=== PATIENT | male | born 1945 | race Caucasian/White ===

== ENCOUNTER → 2016-12-03 | Outpatient (CLI) | payer MEDICARE, BC, OTHER ==
[~2016-12-03] VITALS: Ht 179.1 cm; Wt 107.0 kg
[~2016-12-03] MED LIST: ALTA1CAP3 PO; ASPI1TAB PO; ATOR80TA59 PO; DOXY-278 PO; GABA600T PO; GLIP1TAB49 PO; INSUDET SC; JANU100T PO; LIDOCAINE 2% INJ 100 MG/5 ML SDV (FOR ANES.) As Ordered ONE; METF500T13 PO; NORT25CA2 PO; NS 1,000 ML IV SCH; PANT40TA2 PO; PROPOFOL 500 MG/50 ML VIAL As Ordered ONE; XARE10TA PO
--- NOTE | 2016-12-03 08:33 | ROOR ---
Patient Name: Phil Strong Procedure Date: 12/03/2016 8:06 AM Date of : 1945 Age: 71 Room: [facility] Gender: Male Note Status: Finalized Procedure: Total Colonoscopy to Cecum + Cold Snare Polypectomy + Hemoclip Indications: Screening for colorectal malignant neoplasm Providers: Eliel Art MD Referring MD: Gonzalo Marie MD Requesting Provider: Medicines: Monitored Anesthesia Care Complications: No immediate complications. Procedure: Pre-Anesthesia Assessment: - The heart rate, respiratory rate, oxygen saturations, blood pressure, adequacy of pulmonary ventilation, and response to care were monitored throughout the procedure. The Colonoscope was introduced through the anus and advanced to the cecum, identified by appendiceal orifice and ileocecal valve. The colonoscopy was performed without difficulty. The patient tolerated the procedure well. The quality of the bowel preparation was excellent. Findings: The perianal and digital rectal examinations were normal. Non-bleeding internal hemorrhoids were found during retroflexion. The hemorrhoids were small and Grade I (internal hemorrhoids that do not prolapse). Scattered small-mouthed diverticula were found in the recto-sigmoid colon, sigmoid colon and descending colon. A small polyp was found at 30 cm proximal to the anus. The polyp was sessile. The polyp was removed with a cold snare. Resection and retrieval were complete. To prevent bleeding after the polypectomy, one hemostatic clip was successfully placed (MR conditional). There was no bleeding at the end of the procedure. The exam was otherwise without abnormality on direct and retroflexion views. Impression: - Non-bleeding internal hemorrhoids. - Diverticulosis in the recto-sigmoid colon, in the sigmoid colon and in the descending colon. - One small polyp at 30 cm proximal to the anus, removed with a cold snare. Resected and retrieved. Clip (MR conditional) was placed. - The examination was otherwise normal on direct and retroflexion views. - The exam was otherwise normal to the cecum. Recommendation: - Patient has a contact number available for emergencies. The signs and symptoms of potential delayed complications were discussed with the patient. Return to normal activities tomorrow. Written discharge instructions were provided to the patient. - High fiber diet. - Discharge patient to home. - Continue present medications. - Await pathology results. - Repeat colonoscopy for surveillance based on pathology results. - Resume Xarelto (rivaroxaban) at prior dose today. - Telephone GI clinic for pathology results in 1 week. - Check Portal Online for Path Results.([email or web address] - The findings and recommendations were discussed with the patient's family. Eliel Art MD Eliel Art MD 12/03/2016 8:32:55 AM This report has been signed electronically. Number of Addenda: 0 Note Initiated On: 12/03/2016 8:06 AM Estimated Blood Loss: Estimated blood loss: none.
[2016-12-03 08:54] VITALS: BP 147/84
== END | disposition home or self-care (01) ==
LOC: M OPP 07:12
PROVIDERS: ATTEND Internal Medicine Gastroenterology
DX: Z12.11 Encounter for screening for malignant neoplasm of colon (principal); K64.0 First degree hemorrhoids; K57.30 Diverticulosis of large intestine without perforation or abscess without bleeding; D12.5 Benign neoplasm of sigmoid colon; Z95.5 Presence of coronary angioplasty implant and graft; I25.9 Chronic ischemic heart disease, unspecified; I10 Essential (primary) hypertension; E78.00 Pure hypercholesterolemia, unspecified; I73.9 Peripheral vascular disease, unspecified; E10.9 Type 1 diabetes mellitus without complications; Z86.718 Personal history of other venous thrombosis and embolism; G47.30 Sleep apnea, unspecified; Z79.899 Other long term (current) drug therapy; Z79.82 Long term (current) use of aspirin; Z79.2 Long term (current) use of antibiotics; Z79.4 Long term (current) use of insulin; Z79.01 Long term (current) use of anticoagulants

== ENCOUNTER → 2016-12-18 | Outpatient (REF) | payer MEDICARE, OTHER ==
[~2016-12-18] MED LIST changes: -LIDOCAINE 2% INJ 100 MG/5 ML SDV (FOR ANES.) As Ordered ONE; -NS 1,000 ML IV SCH; -PROPOFOL 500 MG/50 ML VIAL As Ordered ONE
== END ==
LOC: M LAB REF 15:42
PROVIDERS: ATTEND Nurse Practitioner Family
DX: L08.9 Local infection of the skin and subcutaneous tissue, unspecified (principal)

== ENCOUNTER → 2018-02-08 | Outpatient (REF) | payer MEDICARE, OTHER | LOC: M LAB REF 15:31 | DX: L08.9 Local infection of the skin and subcutaneous tissue, unspecified (principal) | CPT/HCPCS: 87077; 87186 ==

== ENCOUNTER → 2018-06-10 | Outpatient (REF) | payer MEDICARE, OTHER ==
[~2018-06-10] MED LIST changes: -DOXY-278 PO; +DOXY-350 PO; -GABA600T PO; +GABA600T4 PO; -GLIP1TAB49 PO; +GLIP5TAB20 PO; -PANT40TA2 PO; +PANT40TA3 PO
== END ==
LOC: M LAB REF 15:45
PROVIDERS: ATTEND Nurse Practitioner Family
DX: L08.9 Local infection of the skin and subcutaneous tissue, unspecified (principal)

== ENCOUNTER → 2018-09-23 | Outpatient (REF) | payer MEDICARE, OTHER ==
[~2018-09-23] MED LIST changes: -ASPI1TAB PO; +ASPI81TA26 PO
[2018-09-23 13:28] LABS: HEMATOCRIT 43.1 % (42.0-52.0); HEMOGLOBIN 14.1 g/dl (13.5-17.5); MEAN CORPUSCULAR HEMOGLOBIN 31.5 pg (27.0-33.0); MEAN CORPUSCULAR HGB CONC 32.7 g/dl (32.0-36.5); MEAN CORPUSCULAR VOLUME 96.2 fl (80.0-96.0); PLATELET COUNT, AUTOMATED 137 10^3/uL (150-450); RED BLOOD COUNT 4.48 10^6/uL (4.30-6.10); WHITE BLOOD COUNT 8.1 10^3/uL (4.0-10.0)
[2018-09-23 13:58] LABS: ALBUMIN 4.1 GM/DL (3.2-5.2); ALT/SGPT 61 U/L (12-78); BILIRUBIN,DIRECT < 0.1 MG/DL (0.0-0.2); BILIRUBIN,TOTAL 0.3 MG/DL (0.2-1.0); CHOLESTEROL LEVEL 173 MG/DL (<200); CHOLESTEROL RISK RATIO 4.435 (<5); HDL CHOLESTEROL 39 MG/DL (>40); LDL CHOLESTEROL 67 MG/DL (<100); NON-HDL-C 134 MG/DL; TOTAL PROTEIN 6.9 GM/DL (6.4-8.2); TRIGLYCERIDES LEVEL 334 MG/DL (<150)
== END ==
LOC: M SFHCPLAZ 12:12
PROVIDERS: ATTEND Dermatology
DX: Z79.899 Other long term (current) drug therapy (principal)

== ENCOUNTER → 2018-12-15 | Outpatient (REF) | payer MEDICARE, OTHER ==
[2018-12-15 14:26] LABS: APPEARANCE, URINE CLEAR (CLEAR); BACTERIA, URINE AUTO NEGATIVE (NEGATIVE); BILIRUBIN, URINE AUTO NEGATIVE (NEGATIVE); BLOOD, URINE BLOOD 1+ (NEGATIVE); COLOR, URINE YELLOW (YELLOW); GLUCOSE, URINE (UA) AUTO 1+ mg/dL (NEGATIVE); KETONE, URINE AUTO NEGATIVE (NEGATIVE); LEUKOCYTE ESTERASE, URINE AUTO NEGATIVE (NEGATIVE); NITRITE, URINE AUTO NEGATIVE (NEGATIVE); PROTEIN, URINE AUTO NEGATIVE (NEGATIVE); RBC, URINE AUTO 4 /HPF (0-3); SPECIFIC GRAVITY URINE AUTO 1.028 (1.002-1.035); SQUAMOUS EPITHELIAL CELL UR AU 1 /HPF (0-6); UROBILINOGEN, URINE AUTO 0.2 mg/dL (0.0-2.0); WBC, URINE AUTO 3 /HPF (0-3)
== END ==
LOC: M LAB REF 13:06
PROVIDERS: ATTEND Physician Assistant
DX: N39.0 Urinary tract infection, site not specified (principal)

== ENCOUNTER 2019-01-11 20:19 | Emergency (ER) | payer MEDICARE, BC, OTHER ==
[~2019-01-11] VITALS: Ht 182.9 cm; Wt 99.1 kg
[2019-01-11] MEDS ORDERED: TRUL0.5I (20:30)
[2019-01-11] MEDS ORDERED: CEPH500C (20:30)
[2019-01-11] MEDS ORDERED: diphenhydrAMINE INJ 50MG/ML VIAL (J1200) IV STA (21:43)
[2019-01-11 21:48] LABS: HEMATOCRIT 41.7 % (42.0-52.0); HEMOGLOBIN 14.2 g/dl (13.5-17.5); MEAN CORPUSCULAR HEMOGLOBIN 32.1 pg (27.0-33.0); MEAN CORPUSCULAR HGB CONC 34.1 g/dl (32.0-36.5); MEAN CORPUSCULAR VOLUME 94.1 fl (80.0-96.0); PLATELET COUNT, AUTOMATED 152 10^3/uL (150-450); RED BLOOD COUNT 4.43 10^6/uL (4.30-6.10); WHITE BLOOD COUNT 7.6 10^3/uL (4.0-10.0)
[2019-01-11 22:10] LABS: BLOOD UREA NITROGEN 20 MG/DL (7-18); CALCIUM LEVEL 9.1 MG/DL (8.8-10.2); CARBON DIOXIDE LEVEL 26 MEQ/L (21-32); CHLORIDE LEVEL 108 MEQ/L (98-107); CREATININE FOR GFR 1.21 MG/DL (0.70-1.30); GLOMERULAR FILTRATION RATE > 60.0 (>42); GLUCOSE, FASTING 128 MG/DL (70-100); POTASSIUM SERUM 3.9 MEQ/L (3.5-5.1); SODIUM LEVEL 141 MEQ/L (136-145)
[2019-01-11] MEDS ORDERED: BENA25CA4 PO (22:43)
[2019-01-11 22:56] VITALS: BP 132/78
== END 2019-01-11 22:58 | disposition home or self-care (01) ==
LOC: M ED 20:19
DX: T78.40XA Allergy, unspecified, initial encounter (principal); R21 Rash and other nonspecific skin eruption; L29.9 Pruritus, unspecified; X58.XXXA Exposure to other specified factors, initial encounter; Y92.098 Other place in other non-institutional residence as the place of occurrence of the external cause; E11.40 Type 2 diabetes mellitus with diabetic neuropathy, unspecified; I25.2 Old myocardial infarction; Z86.718 Personal history of other venous thrombosis and embolism; Z87.442 Personal history of urinary calculi; Z79.899 Other long term (current) drug therapy; Z79.82 Long term (current) use of aspirin; Z79.4 Long term (current) use of insulin; Z79.01 Long term (current) use of anticoagulants; Z79.2 Long term (current) use of antibiotics
CPT/HCPCS: 80048; 85027; 96374; 99284; J1200

== ENCOUNTER → 2020-05-07 | Outpatient (REF) | payer MEDICARE, OTHER ==
[~2020-05-07] MED LIST changes: +BENA25CA4 PO; +CEPH500C; +PANT40TA29 PO; -PANT40TA3 PO; +TRUL0.5I
== END ==
LOC: M LAB REF 12:16
PROVIDERS: ATTEND Family Medicine
DX: R74.01 Elevation of levels of liver transaminase levels (principal)

== ENCOUNTER 2021-03-14 17:55 | Emergency (ER) | payer MEDICARE, OTHER ==
[~2021-03-14] VITALS: Ht 177.8 cm; Wt 103.3 kg
[2021-03-14] MEDS ORDERED: GI COCKTAIL 50ML BTL(HYOSCYAMINE/MAALOX/LIDOCAINE VISCOUS)(1:3:1) PO ONE (18:50)
[2021-03-14 18:51] LABS: BASO % 0.4 % (0.0-1.0); EOS # 0.3 10^3/uL (0.0-0.5); HEMOGLOBIN 14.8 g/dl (13.5-17.5); LYMPH # 2.4 10^3/uL (1.5-5.0); LYMPH % 26.7 % (24.0-44.0); MEAN CORPUSCULAR HEMOGLOBIN 30.8 pg (27.0-33.0); MEAN CORPUSCULAR HGB CONC 32.9 g/dl (32.0-36.5); MEAN CORPUSCULAR VOLUME 93.8 fl (80.0-96.0); MONO # 0.7 10^3/uL (0.0-0.8); MONO % 8.3 % (2.0-8.0); NEUTROPHILS # 5.5 10^3/uL (1.5-8.5); NEUTROPHILS % 61.2 % (36.0-66.0); PLATELET COUNT, AUTOMATED 134 10^3/uL (150-450); WHITE BLOOD COUNT 8.9 10^3/uL (4.0-10.0)
--- NOTE | 2021-03-14 18:59 | REP ---
INDICATION: CHEST PAIN. COMPARISON: 07/24/2016 the latest prior TECHNIQUE: Portable FINDINGS: The technique utilized in obtaining the radiograph has magnified the cardiac silhouette and accentuated the interstitial markings. The cardiomediastinal silhouette lung marinelli are unchanged. No acute patchy parenchymal opacities or pleural effusions have developed. The pleural angles remain sharp. The osseous structures are stable and intact. IMPRESSION: There is no acute cardiopulmonary disease. <Electronically signed by Dennis Hensley > 03/14/21 [id number]
[2021-03-14 19:14] LABS: BLOOD UREA NITROGEN 18 MG/DL (7-18); CALCIUM LEVEL 10.2 MG/DL (8.8-10.2); CARBON DIOXIDE LEVEL 31 MEQ/L (21-32); CHLORIDE LEVEL 106 MEQ/L (98-107); CK-MB VALUE MASS 3.5 NG/ML (<3.6); CPK CREATINE PHOSPHOKINASE 127 U/L (39-308); CREATININE FOR GFR 1.41 MG/DL (0.70-1.30); GLOMERULAR FILTRATION RATE 52.3 (>42); GLUCOSE, FASTING 78 MG/DL (70-100); MB/CK RELATIVE INDEX 2.76 (< OR =4); POTASSIUM SERUM 4.2 MEQ/L (3.5-5.1); SODIUM LEVEL 139 MEQ/L (136-145); TROPONIN I < 0.02 NG/ML (< 0.10)
[2021-03-14] MEDS ORDERED: PEPC1TAB5 PO (19:55)
[2021-03-14 20:00] VITALS: BP 139/83
--- NOTE | 2021-03-14 20:26 | ECGEPIP ---
[facility] - ED Test Date: 2021-03-14 Pat Name: HERBERT CHAPMAN Department: Room: - Gender: Male Header Up: ANAITERESAKURT : 1945 Requested By: Freddie Tran Order Number: [id number] Reading MD: Rosa Elena Rivers Measurements Intervals [place] Rate: 83 P: 59 CT: 180 QRS: -18 QRSD: 112 T: 32 QT: 372 QTc: 437 Interpretive Statements Normal sinus rhythm Incomplete right bundle branch block No prior Electronically Signed on 03-14-2021 20:26:15 EDT by Rosa Elena Rivers
== END 2021-03-14 20:21 | disposition home or self-care (01) ==
LOC: M ED 17:55
DX: K21.9 Gastro-esophageal reflux disease without esophagitis (principal); I45.19 Other right bundle-branch block; I10 Essential (primary) hypertension; I25.2 Old myocardial infarction; Z86.718 Personal history of other venous thrombosis and embolism; Z87.442 Personal history of urinary calculi; Z95.5 Presence of coronary angioplasty implant and graft; Z79.899 Other long term (current) drug therapy; Z79.82 Long term (current) use of aspirin; Z79.4 Long term (current) use of insulin; Z79.01 Long term (current) use of anticoagulants

== ENCOUNTER → 2021-03-30 | Outpatient (REF) | payer MEDICARE, OTHER ==
[~2021-03-30] MED LIST changes: +PEPC1TAB5 PO
== END ==
LOC: M LAB REF 17:51
PROVIDERS: ATTEND Physician Assistant Medical
DX: R05.9 Cough, unspecified (principal)

== ENCOUNTER → 2021-05-09 | Outpatient (REF) | payer MEDICARE, OTHER ==
[2021-05-10 12:54] LABS: ALT/SGPT 76 U/L (12-78)
== END ==
LOC: M LAB REF 07:58
PROVIDERS: ATTEND Family Medicine
DX: R94.5 Abnormal results of liver function studies (principal)

== ENCOUNTER → 2021-09-04 | Outpatient (CLI) | payer MEDICARE, BC, OTHER ==
[~2021-09-04] MED LIST changes: -CEPH500C; +CEPH500C PO; +TRUL0.5I SC
== END ==
LOC: M LABSMTC 09:40
PROVIDERS: ATTEND Anesthesiology
DX: Z01.818 Encounter for other preprocedural examination (principal); Z11.52 Encounter for screening for COVID-19

== ENCOUNTER 2021-09-09 07:28 | Day surgery (SDC) | payer MEDICARE, BC, OTHER ==
[~2021-09-09] VITALS: Ht 177.8 cm; Wt 100.5 kg
[~2021-09-09 07:28] MED LIST changes: +NS 1,000 ML IV ONE
[2021-09-09] MEDS ORDERED: fentaNYL 100 MCG/2 ML INJECTION As Ordered ONE (08:55)
[2021-09-09] MEDS ORDERED: LIDOCAINE 2% INJ 100 MG/5 ML SYRINGE As Ordered ONE (09:15)
[2021-09-09] MEDS ORDERED: propofoL 200 MG/20 ML VIAL As Ordered ONE (09:15)
[2021-09-09 09:48] VITALS: BP 128/74
== END 2021-09-09 09:51 | disposition home or self-care (01) ==
LOC: M OPP 07:28
PROVIDERS: ATTEND Internal Medicine Gastroenterology
DX: Z12.11 Encounter for screening for malignant neoplasm of colon (principal); Z86.010 Personal history of colon polyps; K57.30 Diverticulosis of large intestine without perforation or abscess without bleeding; K64.0 First degree hemorrhoids; K44.9 Diaphragmatic hernia without obstruction or gangrene; K31.89 Other diseases of stomach and duodenum; R12 Heartburn; Z79.02 Long term (current) use of antithrombotics/antiplatelets; Z79.82 Long term (current) use of aspirin; Z79.84 Long term (current) use of oral hypoglycemic drugs; Z79.899 Other long term (current) drug therapy; G47.33 Obstructive sleep apnea (adult) (pediatric); Z99.89 Dependence on other enabling machines and devices
CPT/HCPCS: 43239; 45380; 88305; J3010

== ENCOUNTER → 2021-09-26 | Outpatient (REF) | payer MEDICARE, BC, OTHER ==
[~2021-09-26] MED LIST changes: -NS 1,000 ML IV ONE
== END ==
LOC: M LAB REF 12:06
PROVIDERS: ATTEND Family Medicine
DX: N40.1 Benign prostatic hyperplasia with lower urinary tract symptoms (principal)

== ENCOUNTER → 2022-05-06 | Outpatient (REF) | payer MEDICARE, OTHER ==
[~2022-05-06] MED LIST changes: -DOXY-350 PO; +DOXY-444 PO
== END ==
LOC: M LAB REF 11:59
PROVIDERS: ATTEND Family Medicine
DX: E53.8 Deficiency of other specified B group vitamins (principal)

== ENCOUNTER 2022-05-15 09:27 | Emergency (ER) | payer MEDICARE, OTHER ==
[~2022-05-15] VITALS: Ht 180.3 cm; Wt 101.5 kg
[2022-05-15 09:27] VITALS: BP 151/74
== END 2022-05-15 10:30 | disposition home or self-care (01) ==
LOC: M ED 09:27
DX: S09.90XA Unspecified injury of head, initial encounter (principal); W00.0XXA Fall on same level due to ice and snow, initial encounter; Y92.009 Unspecified place in unspecified non-institutional (private) residence as the place of occurrence of the external cause; I25.10 Atherosclerotic heart disease of native coronary artery without angina pectoris; I10 Essential (primary) hypertension; N20.0 Calculus of kidney; Z79.01 Long term (current) use of anticoagulants; Z79.4 Long term (current) use of insulin; Z79.82 Long term (current) use of aspirin; Z79.899 Other long term (current) drug therapy

== ENCOUNTER 2022-05-19 08:49 | Emergency (ER) | payer MEDICARE, OTHER ==
[~2022-05-19] VITALS: Ht 180.3 cm; Wt 101.7 kg
[2022-05-19] MEDS ORDERED: ACETAMINOPHEN TAB 650MG DOSE (2X325MG) PO ONE (09:55)
[2022-05-19 10:21] VITALS: BP 145/76
== END 2022-05-19 10:34 | disposition home or self-care (01) ==
LOC: M ED 08:49
DX: S00.03XA Contusion of scalp, initial encounter (principal); W19.XXXA Unspecified fall, initial encounter; Y92.099 Unspecified place in other non-institutional residence as the place of occurrence of the external cause; E11.9 Type 2 diabetes mellitus without complications; I10 Essential (primary) hypertension; Z79.899 Other long term (current) drug therapy; Z79.4 Long term (current) use of insulin; Z79.82 Long term (current) use of aspirin; Z79.84 Long term (current) use of oral hypoglycemic drugs

== ENCOUNTER → 2022-05-21 | Outpatient (CLI) | payer MEDICARE, OTHER | LOC: M WUC 14:37 | PROVIDERS: ATTEND Physician Assistant Medical | DX: M25.521 Pain in right elbow (principal) ==

== ENCOUNTER → 2022-10-28 | Outpatient (CLI) | payer MEDICARE, BC, OTHER | LOC: M RAD 11:32 | PROVIDERS: ATTEND Podiatrist Foot & Ankle Surgery | DX: I73.89 Other specified peripheral vascular diseases (principal) ==

== ENCOUNTER → 2022-12-17 | Outpatient (REF) | payer MEDICARE, BC, OTHER ==
[2022-12-17 10:56] LABS: INR 1.58; PROTHROMBIN TIME 19.2 SECONDS (12.5-14.5)
[2022-12-17 10:57] LABS: PARTIAL THROMBOPLASTIN TIME 33.4 SECONDS (24.8-34.2)
[2022-12-17 11:12] LABS: IRON (FE) 73 UG/DL (65-175)
[2022-12-17 11:13] LABS: ALBUMIN 3.9 G/DL (3.2-5.2); ALKALINE PHOSPHATASE 67 U/L (46-116); ALT/SGPT 45 U/L (7.0-40); AST/SGOT 25 U/L (<34); BILIRUBIN,DIRECT 0.2 MG/DL (<0.4); BILIRUBIN,TOTAL 0.4 MG/DL (0.3-1.2); PERCENT SATURATION 20.7 % (19.7-50.0); THYROID STIMULATING HORMONE 1.815 uIU/ML (0.55-4.78); TOTAL IRON BINDING CAPACITY 353 UG/DL (250-425)
[2022-12-17 11:14] LABS: HEPATITIS B SURFACE ANTIBODY NEGATIVE (POSITIVE)
[2022-12-17 11:15] LABS: FERRITIN 46.3 NG/ML (10.5-307.3)
[2022-12-17 11:47] LABS: HEPATITIS C VIRUS ABY INDEX 0.12 INDEX (<0.8)
== END ==
LOC: M LABWUC 09:29
PROVIDERS: ATTEND Physician Assistant
DX: R94.5 Abnormal results of liver function studies (principal)

== ENCOUNTER 2023-03-31 08:32 | Emergency (ER) | payer MEDICARE, BC, OTHER ==
[~2023-03-31] VITALS: Ht 180.3 cm; Wt 101.8 kg
[2023-03-31] MEDS ORDERED: AMIT75TA (08:45)
[2023-03-31] MEDS ORDERED: PREG100C2 (08:45)
[2023-03-31] MEDS ORDERED: ACETAMINOPHEN 500 MG TAB PO ONE (11:15)
[2023-03-31] MEDS ORDERED: ONDANSETRON 4MG ORAL DISINTEGRATING TAB PO ONE (11:15)
[2023-03-31 12:03] LABS: BASO % 0.4 % (0.0-1.0); EOS # 0.2 10^3/uL (0.0-0.5); EOS % 3.1 % (0.0-3.0); HEMATOCRIT 44.1 % (42.0-52.0); HEMOGLOBIN 14.5 g/dl (13.5-17.5); LYMPH # 1.6 10^3/uL (1.5-5.0); LYMPH % 23.8 % (24.0-44.0); MEAN CORPUSCULAR HEMOGLOBIN 31.5 pg (27.0-33.0); MEAN CORPUSCULAR HGB CONC 32.9 g/dl (32.0-36.5); MEAN CORPUSCULAR VOLUME 95.9 fl (80.0-96.0); MONO # 0.6 10^3/uL (0.0-0.8); MONO % 9.5 % (2.0-8.0); NEUTROPHILS # 4.2 10^3/uL (1.5-8.5); NEUTROPHILS % 62.9 % (36.0-66.0); PLATELET COUNT, AUTOMATED 105 10^3/uL (150-450); WHITE BLOOD COUNT 6.7 10^3/uL (4.0-10.0)
[2023-03-31 12:29] LABS: C REACTIVE PROTEIN QUANTITATIV < 0.40 MG/DL (<1.0)
[2023-03-31 12:31] LABS: BLOOD UREA NITROGEN 20 MG/DL (9-23); CALCIUM LEVEL 9.1 MG/DL (8.3-10.6); CARBON DIOXIDE LEVEL 27 MMOL/L (20-31); CHLORIDE LEVEL 105 MMOL/L (98-107); CREATININE FOR GFR 1.22 MG/DL (0.70-1.30); GLOMERULAR FILTRATION RATE > 60.0 (>42); GLUCOSE, FASTING 145 MG/DL (74-106); POTASSIUM SERUM 4.6 MMOL/L (3.5-5.1); SODIUM LEVEL 139 MMOL/L (136-145)
[2023-03-31 13:03] LABS: ERYTHROCYTE SEDIMENTATION RATE 26 mm/hr (0-20)
[2023-03-31 13:08] VITALS: BP 157/75; TEMP 98; O2SAT 100
== END 2023-03-31 14:09 | disposition home or self-care (01) ==
LOC: M ED 08:32
DX: K40.20 Bilateral inguinal hernia, without obstruction or gangrene, not specified as recurrent (principal); I10 Essential (primary) hypertension; Z87.442 Personal history of urinary calculi; Z86.718 Personal history of other venous thrombosis and embolism; Z79.01 Long term (current) use of anticoagulants; Z79.82 Long term (current) use of aspirin; Z79.4 Long term (current) use of insulin; Z79.84 Long term (current) use of oral hypoglycemic drugs; Z79.899 Other long term (current) drug therapy

== ENCOUNTER → 2023-06-17 | Outpatient (CLI) | payer MEDICARE, BC, OTHER ==
[~2023-06-17] MED LIST changes: +AMIT75TA; +PREG100C2
== END ==
LOC: M RAD 10:01
PROVIDERS: ATTEND Family Medicine
DX: K76.0 Fatty (change of) liver, not elsewhere classified (principal); N28.1 Cyst of kidney, acquired; N20.0 Calculus of kidney

== ENCOUNTER → 2023-07-13 | Outpatient (REF) | payer MEDICARE, BC, OTHER ==
[2023-07-13 12:41] LABS: APPEARANCE, URINE CLEAR (CLEAR); BACTERIA, URINE AUTO NEGATIVE (NEGATIVE); BILIRUBIN, URINE AUTO NEGATIVE (NEGATIVE); BLOOD, URINE BLOOD 1+ (NEGATIVE); COLOR, URINE YELLOW (YELLOW); GLUCOSE, URINE (UA) AUTO 3+ mg/dL (NEGATIVE); KETONE, URINE AUTO NEGATIVE (NEGATIVE); LEUKOCYTE ESTERASE, URINE AUTO NEGATIVE (NEGATIVE); MUCUS, URINE SMALL (NEGATIVE); NITRITE, URINE AUTO NEGATIVE (NEGATIVE); PROTEIN, URINE AUTO 1+ mg/dL (NEGATIVE); RBC, URINE AUTO 4 /HPF (0-3); SQUAMOUS EPITHELIAL CELL UR AU 0 /HPF (0-6); UROBILINOGEN, URINE AUTO 0.2 mg/dL (0.0-2.0); WBC, URINE AUTO 3 /HPF (0-3)
== END ==
LOC: M LAB REF 12:04
PROVIDERS: ATTEND Physician Assistant Medical
DX: N39.0 Urinary tract infection, site not specified (principal)

== ENCOUNTER → 2023-07-15 | Outpatient (CLI) | payer MEDICARE, BC, OTHER ==
[2023-07-15 10:18] LABS: CREATININE FOR GFR 1.35 MG/DL (0.70-1.30); GLOMERULAR FILTRATION RATE 54.6 (>42)
== END ==
LOC: M WUC 08:37
PROVIDERS: ATTEND Urology
DX: N28.1 Cyst of kidney, acquired (principal); R31.21 Asymptomatic microscopic hematuria

== ENCOUNTER → 2023-11-18 | Outpatient (REF) | payer MEDICARE, OTHER ==
[~2023-11-18] MED LIST changes: +DOXY-440 PO; -DOXY-444 PO
[2023-11-18 11:34] LABS: CREATININE FOR GFR 1.28 MG/DL (0.70-1.30)
== END ==
LOC: M LABWUC 10:16
PROVIDERS: ATTEND Urology
DX: D41.02 Neoplasm of uncertain behavior of left kidney (principal); N28.1 Cyst of kidney, acquired

== ENCOUNTER → 2024-04-07 | Outpatient (REF) | payer MEDICARE, OTHER, BC ==
[~2024-04-07] MED LIST changes: +GABA-1490 PO; -GABA600T4 PO
[2024-04-07 14:21] LABS: APPEARANCE, URINE HAZY (CLEAR); BACTERIA, URINE AUTO NEGATIVE (NEGATIVE); BILIRUBIN, URINE AUTO NEGATIVE (NEGATIVE); BLOOD, URINE BLOOD 2+ (NEGATIVE); COLOR, URINE YELLOW (YELLOW); GLUCOSE, URINE (UA) AUTO NEGATIVE (NEGATIVE); KETONE, URINE AUTO NEGATIVE (NEGATIVE); LEUKOCYTE ESTERASE, URINE AUTO 2+ (NEGATIVE); MUCUS, URINE SMALL (NEGATIVE); NITRITE, URINE AUTO NEGATIVE (NEGATIVE); PROTEIN, URINE AUTO 1+ mg/dL (NEGATIVE); RBC, URINE AUTO 13 /HPF (0-3); SPECIFIC GRAVITY URINE AUTO 1.023 (1.002-1.035); SQUAMOUS EPITHELIAL CELL UR AU 0 /HPF (0-6); UROBILINOGEN, URINE AUTO 0.2 mg/dL (0.0-2.0); WBC, URINE AUTO 8 /HPF (0-3)
== END ==
LOC: M SMT 12:54
PROVIDERS: ATTEND Nurse Practitioner Family
DX: R31.29 Other microscopic hematuria (principal)

== ENCOUNTER → 2024-11-24 | Outpatient (CLI) | payer MEDICARE, BC ==
[~2024-11-24] MED LIST changes: +GLIP-318 PO; -GLIP5TAB20 PO
== END ==
LOC: M RAD 12:46
PROVIDERS: ATTEND Urology
DX: N20.0 Calculus of kidney (principal)

== ENCOUNTER → 2024-12-12 | Outpatient (REF) | payer MEDICARE, BC ==
[2024-12-12 13:33] LABS: APPEARANCE, URINE TURBID (CLEAR); BACTERIA, URINE AUTO NEGATIVE (NEGATIVE); BILIRUBIN, URINE AUTO NEGATIVE (NEGATIVE); BLOOD, URINE BLOOD 1+ (NEGATIVE); GLUCOSE, URINE (UA) AUTO 2+ mg/dL (NEGATIVE); KETONE, URINE AUTO NEGATIVE (NEGATIVE); LEUKOCYTE ESTERASE, URINE AUTO TRACE (NEGATIVE); MUCUS, URINE SMALL (NEGATIVE); NITRITE, URINE AUTO NEGATIVE (NEGATIVE); PROTEIN, URINE AUTO 1+ mg/dL (NEGATIVE); RBC, URINE AUTO 1 /HPF (0-3); SPECIFIC GRAVITY URINE AUTO 1.024 (1.002-1.035); SQUAMOUS EPITHELIAL CELL UR AU 0 /HPF (0-6); UROBILINOGEN, URINE AUTO 0.2 mg/dL (0.0-2.0); WBC, URINE AUTO 4 /HPF (0-3)
== END ==
LOC: M SMT 12:49
PROVIDERS: ATTEND Nurse Practitioner Family
DX: R31.29 Other microscopic hematuria (principal)

== ENCOUNTER → 2025-05-01 | Outpatient (REF) | payer MEDICARE, BC ==
[2025-05-01 16:59] LABS: APPEARANCE, URINE CLEAR (CLEAR); BACTERIA, URINE AUTO NEGATIVE (NEGATIVE); BILIRUBIN, URINE AUTO NEGATIVE (NEGATIVE); BLOOD, URINE BLOOD 1+ (NEGATIVE); GLUCOSE, URINE (UA) AUTO 1+ mg/dL (NEGATIVE); KETONE, URINE AUTO NEGATIVE (NEGATIVE); LEUKOCYTE ESTERASE, URINE AUTO 1+ (NEGATIVE); MUCUS, URINE SMALL (NEGATIVE); NITRITE, URINE AUTO NEGATIVE (NEGATIVE); PROTEIN, URINE AUTO NEGATIVE (NEGATIVE); RBC, URINE AUTO 1 /HPF (0-3); SPECIFIC GRAVITY URINE AUTO 1.015 (1.002-1.035); SQUAMOUS EPITHELIAL CELL UR AU 0 /HPF (0-6); UROBILINOGEN, URINE AUTO 0.2 mg/dL (0.0-2.0); WBC, URINE AUTO 3 /HPF (0-3)
== END ==
LOC: M SMT 16:41
PROVIDERS: ATTEND Urology
DX: R10.20 Pelvic and perineal pain unspecified side (principal)